=== PATIENT | female | born 1990 | race Caucasian/White ===

== ENCOUNTER → 2024-06-03 | Outpatient (CLI) | payer OTHER ==
[2024-06-03 13:57] LABS: ALBUMIN 3.9 G/DL (3.2-5.2); BLOOD UREA NITROGEN 10 MG/DL (9-23); CALCIUM LEVEL 8.9 MG/DL (8.5-10.1); CARBON DIOXIDE LEVEL 27 MMOL/L (20-31); CHLORIDE LEVEL 111 MMOL/L (98-107); CHOLESTEROL LEVEL 169 MG/DL (<200); CHOLESTEROL RISK RATIO 4.18 (<5); CREATININE FOR GFR 0.66 MG/DL (0.55-1.30); GLOMERULAR FILTRATION RATE > 60.0 (>60); GLUCOSE, FASTING 77 MG/DL (60-100); HDL CHOLESTEROL 40.4 MG/DL (>40); NON-HDL-C 128.6 MG/DL; PHOSPHORUS LEVEL 3.1 MG/DL (2.5-4.9); POTASSIUM SERUM 4.3 MMOL/L (3.5-5.1); SODIUM LEVEL 142 MMOL/L (136-145); TRIGLYCERIDES LEVEL 63 MG/DL (<150)
[2024-06-03 13:59] LABS: THYROID STIMULATING HORMONE 1.129 uIU/ML (0.55-4.78)
== END ==
LOC: M EKG 10:21
PROVIDERS: ATTEND Internal Medicine Cardiovascular Disease
DX: R00.2 Palpitations (principal)

== ENCOUNTER → 2024-06-16 | Outpatient (CLI) | payer OTHER | LOC: M CARPUL 09:09 → EDUNIT# 10:00 | PROVIDERS: ATTEND Internal Medicine Cardiovascular Disease | DX: R94.31 Abnormal electrocardiogram [ECG] [EKG] (principal) ==

== ENCOUNTER → 2024-08-16 | Outpatient (CLI) | payer OTHER | LOC: EDUNIT# 07-25 14:00 → M CARPUL 10:52 | PROVIDERS: ATTEND Internal Medicine Cardiovascular Disease | DX: R94.31 Abnormal electrocardiogram [ECG] [EKG] (principal); R00.2 Palpitations; R01.2 Other cardiac sounds ==

== ENCOUNTER 2024-08-30 05:54 | Day surgery (SDC) | payer OTHER ==
[~2024-08-30] VITALS: Ht 154.9 cm; Wt 66.7 kg
[~2024-08-30 05:54] MED LIST: NORE5TAB PO; VENL37.598 PO
[2024-08-30] MEDS ORDERED: LR 1,000 ML IV SCH (06:15)
[2024-08-30 06:25] LABS: HEMATOCRIT 41.1 % (36.0-47.0); HEMOGLOBIN 13.6 g/dl (12.0-15.5); MEAN CORPUSCULAR HEMOGLOBIN 28.2 pg (27.0-33.0); MEAN CORPUSCULAR HGB CONC 33.1 g/dl (32.0-36.5); MEAN CORPUSCULAR VOLUME 85.3 fl (80.0-96.0); PLATELET COUNT, AUTOMATED 359 10^3/uL (150-450); RED BLOOD COUNT 4.82 10^6/uL (4.00-5.40); WHITE BLOOD COUNT 10.5 10^3/uL (4.0-10.0)
[2024-08-30] MEDS: ACETAMINOPHEN 500 MG TAB PO ONE (06:34)
[2024-08-30] MEDS: SCOPOLAMINE 1MG TRANSDERMAL PATCH TOP ONE (06:34)
[2024-08-30 06:55] LABS: BLOOD UREA NITROGEN 8 MG/DL (9-23); CALCIUM LEVEL 8.8 MG/DL (8.5-10.1); CARBON DIOXIDE LEVEL 28 MMOL/L (20-31); CHLORIDE LEVEL 106 MMOL/L (98-107); CREATININE FOR GFR 0.67 MG/DL (0.55-1.30); GLOMERULAR FILTRATION RATE > 90.0 (>60); GLUCOSE, FASTING 108 MG/DL (60-100); POTASSIUM SERUM 4.3 MMOL/L (3.5-5.1); SODIUM LEVEL 140 MMOL/L (136-145)
[2024-08-30 06:56] LABS: HCG, SERUM QUALITATIVE NEGATIVE (NEGATIVE)
[2024-08-30] MEDS ORDERED: ONDANSETRON 4MG 2ML VIAL As Ordered ONE (07:12)
[2024-08-30] MEDS ORDERED: propofoL 200 MG/20 ML VIAL As Ordered ONE (07:12)
[2024-08-30] MEDS ORDERED: MIDAZOLAM INJ 2MG/2ML VIAL As Ordered ONE (07:12)
[2024-08-30] MEDS ORDERED: ROCURONIUM BROMIDE 50MG/5ML VIAL As Ordered ONE (07:12)
[2024-08-30] MEDS ORDERED: LIDOCAINE 2% 100MG/5ML SDV (FOR ANES.) As Ordered ONE (07:12)
[2024-08-30] MEDS ORDERED: fentaNYL 100 MCG/2 ML INJECTION As Ordered ONE (07:13)
[2024-08-30] MEDS ORDERED: SUGAMMADEX SODIUM 500 MG/5 ML VIAL (BRIDION) As Ordered ONE (07:15)
[2024-08-30] MEDS ORDERED: KETOROLAC 30 MG/ML 1ML VIAL As Ordered ONE (07:16)
[2024-08-30] MEDS: metroNIDAZOLE 500 MG in IV 1 EA IV ONE (07:30)
[2024-08-30] MEDS: ceFAZolin SOD 2 GM IV ONCE IV ONE (07:35)
[2024-08-30] MEDS ORDERED: ACETAMINOPHEN 500 MG TAB PO ONE (07:40)
[2024-08-30] MEDS ORDERED: dexmedeTOMIDine (4MCG/ML)200MCG/50ML BTL (PRECEDEX) As Ordered ONE (09:35)
[2024-08-30] MEDS ORDERED: HYDROmorphone HCL 2MG/ML 1ML VIAL As Ordered ONE (09:46)
[2024-08-30] MEDS ORDERED: PHENYLephrine 500MCG 5ML (100MCG/ML) SYRINGE As Ordered ONE (09:53)
[2024-08-30] MEDS ORDERED: fentaNYL 100 MCG/2 ML INJECTION IV PRN (10:45)
[2024-08-30] MEDS ORDERED: MEPERIDINE 25 MG/ML 1ML VIAL IV PRN (10:45)
[2024-08-30] MEDS ORDERED: oxyCODONE 5MG TAB PO PRN ×2 (10:45→11:00)
[2024-08-30] MEDS ORDERED: HYDROMORPHONE HCL 0.5 MG/ 0.5 ML SYRINGE IV PRN (10:45)
[2024-08-30] MEDS ORDERED: METOCLOPRAMIDE INJ 10MG/2ML VIAL IV PRN (11:00)
[2024-08-30] MEDS ORDERED: diphenhydrAMINE 25MG CAP PO PRN (11:00)
[2024-08-30] MEDS ORDERED: PROMETHAZINE 25MG/ML 1ML VIAL IV PRN (11:00)
[2024-08-30] MEDS: ONDANSETRON 4MG 2ML VIAL IV PRN (11:33)
[2024-08-30 12:43] VITALS: BP 107/69; TEMP 96.9; O2SAT 97
== END 2024-08-30 12:57 | disposition home or self-care (01) ==
LOC: M SDC 05:54
PROVIDERS: ATTEND General Practice
DX: N80.03 Adenomyosis of the uterus (principal); N88.8 Other specified noninflammatory disorders of cervix uteri; Z98.891 History of uterine scar from previous surgery; Z88.2 Allergy status to sulfonamides; F17.210 Nicotine dependence, cigarettes, uncomplicated
CPT/HCPCS: 36415; 58571; 80048; 81025; 84703; 85027; 86850; 86900; 86901; 88307; J0665; J0690; J1100; J1171; J1836; J1885; J2250; J2371; J2405; J3010